=== PATIENT | male | born 1985 | race African-American/Black ===

== ENCOUNTER 2025-01-02 14:51 | Emergency (ER) | payer MEDICAID ==
[~2025-01-02] VITALS: Ht 167.6 cm; Wt 75.0 kg
[2025-01-02 14:58] VITALS: BP 123/86; PULSE 70; RESP 16; TEMP 98.1; O2SAT 100
[2025-01-02] MEDS: FAMOTIDINE 20 MG/2 ML VIAL IVP ONE (15:30)
[2025-01-02 15:38] LABS: BASOPHILS % (AUTO) 1.8 % (0.0-2.0); EOSINOPHILS % (AUTO) 2.7 % (1.0-6.0); HEMATOCRIT 44.6 % (41-53); HEMOGLOBIN 15.1 g/dL (13.5-17.5); LYMPHOCYTES # (AUTO) 1.6 K/uL (1.0-4.8); LYMPHOCYTES % (AUTO) 41.1 % (22.0-44.0); MEAN CORPUSCULAR HEMOGLOBIN 31.1 pg (26.0-34.0); MEAN CORPUSCULAR VOLUME 92 fL (80-100); MONOCYTES # (AUTO) 0.3 K/uL (0.1-1.0); MONOCYTES % (AUTO) 8.4 % (2.0-9.0); NEUTROPHILS # (AUTO) 1.7 K/uL (1.8-7.7); PLATELET COUNT (AUTO) 207 K/uL (150-450); RED BLOOD CELL COUNT(AUTO) 4.87 MIL/uL (4.50-5.90); RED CELL DISTRIBUTION WIDTH 12.9 % (11.5-14.5); WHITE BLOOD COUNT (AUTO) 3.8 K/uL (4.5-11.0)
[2025-01-02 15:48] LABS: ANION GAP 4 mmol/L (8-16); CALCIUM, TOTAL 9.5 mg/dL (8.8-10.5); CARBON DIOXIDE 30 mmol/L (22-29); CHLORIDE 104 mmol/L (98-107); CREATININE 1.22 mg/dL (0.60-1.30); GLOMERULAR FILTR. RATE CALC > 60 mL/min (>60); GLUCOSE,RANDOM 95 mg/dL (70-110); SODIUM SERUM 138 mmol/L (136-145); UREA NITROGEN, BLOOD 13 mg/dL (7-18)
[2025-01-02 15:50] LABS: ALBUMIN 4.1 g/dL (3.4-5.0); BILIRUBIN,DIRECT 0.1 mg/dL (0.00-0.20); BILIRUBIN,TOTAL 0.3 mg/dL (0.1-1.0); TOTAL PROTEIN, SERUM 8.1 g/dL (6.4-8.2)
[2025-01-02] MEDS: MAG HYDROX/ALUMINUM HYD/SIMETH 30 ML SUSPENSION UDCUP PO ONE (15:56)
[2025-01-02] MEDS: KETOROLAC TROMETHAMINE 30 MG/ML VIAL IVP ONE (15:57)
[2025-01-02] MEDS ORDERED: SODIUM CHLORIDE 0.9% 100 ML ONE (16:11)
[2025-01-02] MEDS ORDERED: IOHEXOL 350 MG/ML 100 ML VIAL ONE (16:11)
== END 2025-01-02 17:58 | disposition home or self-care (01) ==
LOC: EMS 14:51
DX: R10.31 Right lower quadrant pain (principal); K29.70 Gastritis, unspecified, without bleeding
CPT/HCPCS: 99285; 74177; 96374; 96375; 80048; 80076; 83690; 85025; 36415; J1885; Q9967; J3490; J7050

== ENCOUNTER 2025-06-29 12:50 | Emergency (ER) | payer MEDICAID ==
[~2025-06-29] VITALS: Ht 177.8 cm; Wt 84.0 kg
[2025-06-29 12:58] VITALS: BP 122/71; PULSE 74; RESP 18; TEMP 98.2; O2SAT 100
[2025-06-29] MEDS ORDERED: ACET-2247 PO (16:14)
[2025-06-29] MEDS ORDERED: IBUP-1492 PO (16:14)
== END 2025-06-29 16:30 | disposition home or self-care (01) ==
LOC: EMS 12:51
DX: S66.411A Strain of intrinsic muscle, fascia and tendon of right thumb at wrist and hand level, initial encounter (principal); Z79.899 Other long term (current) drug therapy; X58.XXXA Exposure to other specified factors, initial encounter; Y93.89 Activity, other specified; Y92.89 Other specified places as the place of occurrence of the external cause; Y99.8 Other external cause status
CPT/HCPCS: 99283